=== PATIENT | male | born 1995 | race Caucasian/White ===

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

== ENCOUNTER 2017-07-05 20:35 | Emergency (ER) | payer OTHER ==
[~2017-07-05] VITALS: Ht 177.8 cm; Wt 61.4 kg
[~2017-07-05 20:35] MED LIST changes: +ANTIVERT25 MG PO; +BENTYL20 MG PO; +ZOFRAN ODT4 MG PO
[2017-07-05 20:38] VITALS: BP 166/95
[2017-07-05] MEDS ORDERED: NAPROSYN500 MG PO (21:54)
[2017-07-05] MEDS ORDERED: FLEXERIL10 MG PO (21:54)
== END 2017-07-05 22:14 | disposition home or self-care (01) ==
LOC: EME 20:35 → RME 20:35 → EXP 20:35 → RME 22:14
DX: M62.838 Other muscle spasm (principal); M54.2 Cervicalgia
CPT/HCPCS: 99281; 99284